=== PATIENT | female | born 1960 | race Caucasian/White ===

== ENCOUNTER 2019-04-29 06:18 | Outpatient (CLI) | payer BC ==
--- NOTE | 2019-04-29 16:34 | EKG ---
Test Reason : Blood Pressure : / mmHG Vent. Rate : 078 BPM Atrial Rate : 078 BPM P-R Int : 160 ms QRS Dur : 080 ms QT Int : 384 ms P-R-T Axes : 049 020 058 degrees QTc Int : 437 ms Normal sinus rhythm Cannot rule out Anterior infarct , age undetermined Abnormal ECG When compared with ECG of 22-JAN-2004 20:04, Nonspecific T wave abnormality no longer evident in Inferior leads Nonspecific T wave abnormality has replaced inverted T waves in Anterior leads Confirmed by DR. Armani CAI ([id number]) on 04/29/2019 4:33:52 PM Referred By: [email or web address] Confirmed By:DR. Armani CAI
== END 2019-04-29 06:19 | disposition home or self-care (01) ==
LOC: LABBT 06:18
PROVIDERS: ATTEND Student in an Organized Health Care Education/Training Program
DX: Z01.812 Encounter for preprocedural laboratory examination (principal); N95.0 Postmenopausal bleeding
CPT/HCPCS: 93005; 93010

== ENCOUNTER 2019-04-30 09:47 | Day surgery (SDC) | payer BC ==
[2019-04-29 15:30] VITALS: BMI 44.1
[2019-04-30 10:42] LABS: Mean Corpuscular HGB CONC 33.7 g/dL (32.0-36.0); Mean Corpuscular Hemoglobin 29.3 pg (27.0-31.0); Mean Corpuscular Volume 86.8 fL (78.0-98.0); Mean Platelet Volume 7.7 fL (7.4-10.4); Platelet Count 254 thou/uL (130-400); RBC Distribution Width 11.8 % (11.5-14.5); Red Blood Cell (RBC) Count 4.79 mill/uL (4.20-5.40); White Blood Cell (WBC) Count 8.6 thou/uL (4.8-10.8)
[2019-04-30 11:05] LABS: Anion Gap 13 mmol/L (10-20); BUN (Urea Nitrogen) 9 mg/dL (9.8-20.1); Calc. Creatinine Clearance 174 mL/min (70-130); Calcium 9.4 mg/dL (7.8-10.44); Carbon Dioxide 25 mmol/L (22-29); Chloride 105 mmol/L (98-107); Estimated GFR-MDRD Greater than 90; Glucose 99 mg/dL (70-105); Potassium 4.4 mmol/L (3.5-5.1); Sodium 139 mmol/L (136-145)
[2019-04-30] MEDS ORDERED: Famotidine/PF 20 mg/2ml Vial ONE (12:07)
[2019-04-30] MEDS ORDERED: Fentanyl 100 MCG/2 ML VIAL ONE (12:07)
[2019-04-30] MEDS ORDERED: PROPOFOL 200 MG/20 ML VIAL ONE (12:43)
[2019-04-30] MEDS ORDERED: PHENYLEPHRINE-NS 100 MCG/ML 10 ML SYRINGE ONE (12:43)
[2019-04-30] MEDS ORDERED: Succinylcholine Chloride 20 MG/ML 10 ml SYRINGE FS ONE (12:43)
[2019-04-30] MEDS ORDERED: Ondansetron PF 4 MG/2 ML Vial ONE (12:43)
[2019-04-30] MEDS ORDERED: Ketorolac Tromethamine 30 MG/ML VIAL ONE (12:43)
[2019-04-30] MEDS ORDERED: Metoclopramide HCl 10 MG/2 ML VIAL ONE (12:43)
[2019-04-30] MEDS ORDERED: ePHEDrine/0.9% NaCl/PF SYRINGE 50 mg/10 ml ONE (12:43)
[2019-04-30] MEDS ORDERED: Lidocaine 1% PF 5 ML VIAL ONE (12:43)
--- NOTE | 2019-04-30 16:47 | OP ---
DATE OF PROCEDURE: 04/30/2019 PREOPERATIVE DIAGNOSES: Postmenopausal vaginal bleeding and thickened endometrium. POSTOPERATIVE DIAGNOSES: Postmenopausal vaginal bleeding and thickened endometrium and endometrial polyp. ANESTHESIA: General endotracheal. 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 ESTIMATED BLOOD LOSS: 10 mL. IVF: Pending. URINE OUTPUT: 75 mL clear urine at the beginning. COMPLICATIONS: None. DRAINS: None. PATHOLOGY: Endometrial polyp. FINDINGS: Normal appearing cervix. Uterus sounded to 7 cm. Endocervical canal within normal limits. Large uterine polyp off the posterior wall of the uterus filling the entire uterine cavity and prolapsing down into the upper endocervical canal. The endometrium was otherwise atrophic. Bilateral tubal ostia were visualized and the fluid deficit for the case was 100 mL. DESCRIPTION OF PROCEDURE: The patient was taken to the operating room, where general anesthesia was obtained without difficulty. The patient was prepped and draped in a sterile fashion in a dorsal lithotomy position. A speculum was placed in the vagina. The anterior lip of the cervix was grasped with single-tooth tenaculum. The uterus was then sounded and the cervix was progressively dilated with Joaquin dilators. The 5 mm hysteroscope was assembled and then inserted into the uterine fundus with the above findings noted and photodocumentation was performed. The Mini incisor blade was then inserted through the operating channel and used to resect the polyp as well as the surrounding endometrium completely. Once the specimen had been removed completely, the hysteroscope was removed. The tenaculum was also removed off the cervix. The cervix was noted to be hemostatic. All instruments were removed from the vagina. The patient tolerated the procedure well. Sponge, lap, and needle counts were correct x2. The patient was taken to recovery in stable condition. The patient did not receive any antibiotics prior to the procedure. Normal saline was used as distention media and fluid deficit for the case was 100 mL. Job ID: [id number]
== END 2019-04-30 14:35 | disposition home or self-care (01) ==
LOC: SDC 09:47
PROVIDERS: ATTEND Student in an Organized Health Care Education/Training Program
PROC: 0UB98ZX Excision of Uterus, Via Natural or Artificial Opening Endoscopic, Diagnostic (ICD-10-PCS; principal; 2019-04-30)
DX: C54.1 Malignant neoplasm of endometrium (principal); E11.9 Type 2 diabetes mellitus without complications; F41.9 Anxiety disorder, unspecified; F32.9 Major depressive disorder, single episode, unspecified; Z79.82 Long term (current) use of aspirin; Z79.84 Long term (current) use of oral hypoglycemic drugs; Z79.899 Other long term (current) drug therapy; Z88.1 Allergy status to other antibiotic agents; Z88.2 Allergy status to sulfonamides; Z88.8 Allergy status to other drugs, medicaments and biological substances
CPT/HCPCS: 36415; 80048; 85027; 86850; 86900; 86901; 88305; J0131; J1885; J2001; J2405; J2704; J2765; J3010; S0028

== ENCOUNTER 2019-05-16 09:16 | Outpatient (CLI) | payer BC ==
[~2019-05-16 09:16] MED LIST: Iopamidol 370 76% 100 ML VIAL ONE
--- NOTE | 2019-05-16 11:07 | CT ---
CHEST CT WITH AND WITHOUT CONTRAST ABDOMEN CT WITH AND WITHOUT CONTRAST PELVIC CT WITH AND WITHOUT CONTRAST: HISTORY: Patient diagnosed with uterine cancer 2 weeks ago. Patient is scheduled for hysterectomy. FINDINGS: Chest CT: No mediastinal mass, lymphadenopathy or hematoma. Heart: Normal size. No significant pericardial fluid. Aorta: Normal caliber. No periaortic fat stranding or aneurysm. Lower neck and axilla: No abnormalities. Trachea and central bronchi: Patent. Pleural spaces: No pleural effusion. Pneumothorax: None. Right lung: No suspicious masses or consolidation. Left lung: No suspicious masses or consolidation. 3 mm nodule in the left lower lobe. Abdomen CT: Diffuse hypoattenuation of the liver due to hepatic steatosis. There are no enhancing masses in the h epatic parenchyma. Spleen, pancreas and adrenal glands have appropriate attenuation and enhancement. No gastrohepatic, retrocrural or periportal lymphadenopathy. Portal vein is patent. Unremarkable gallbladder. Limited evaluation of the alimentary canal due to lack of oral contrast. No evidence of bowel obstruc tion. Unremarkable ileocecal junction. Normal caliber retrocecal appendix. Occasional diverticulum. No diverticulitis. Pelvic CT: No pelvic mass, lymphadenopathy or hematoma. Presacral space is unremarkable. Unremarkable urinary bl adder. Uterus and adnexal structures are grossly unremarkable. On the sagittal images, there is an exophytic soft tissue density, incompletely evaluated. Based on the images provided, this lesion angelic ures 1.4 cm the mediolateral dimension. Uterus is anteverted. Osseous structures: No lytic or blastic lesions. IMPRESSION: 1. Left lower lobe lung nodule. 2. No acute abnormality in the abdomen or pelvis. 3. Questionable mass emanating from the anterior uterine myometrium, near the uterine fundus.
== END 2019-05-16 09:17 | disposition home or self-care (01) ==
LOC: SCSCT 09:16
PROVIDERS: ATTEND Obstetrics & Gynecology Gynecologic Oncology
DX: C54.0 Malignant neoplasm of isthmus uteri (principal); R91.1 Solitary pulmonary nodule
CPT/HCPCS: 71270; 74178; Q9967

== ENCOUNTER 2020-04-13 11:02 | Outpatient (CLI) | payer BC ==
--- NOTE | 2020-04-13 11:44 | RAD ---
EXAM: Two views chest PROVIDED CLINICAL HISTORY: Malignant neoplasm of endometrium COMPARISON: None FINDINGS: Cardiac silhouette and pulmonary vasculature are within normal limits. The lungs are clear. No discr ete pulmonary nodule or mass is seen. There is no pleural effusion identified. There is evidence of an anterior right shoulder dislocation; this was present on CT thorax on 05/16/2019. Degenerative everett nges are seen in the spine. IMPRESSION: 1. Anterior right shoulder dislocation. This was also present on CT thorax on 05/16/2019. 2. No acute cardiopulmonary process..
== END 2020-04-13 11:03 | disposition home or self-care (01) ==
LOC: RAD 11:02
PROVIDERS: ATTEND Student in an Organized Health Care Education/Training Program
DX: C54.1 Malignant neoplasm of endometrium (principal); S43.014D Anterior dislocation of right humerus, subsequent encounter
CPT/HCPCS: 71046